=== PATIENT | female | born 1945 ===

== ENCOUNTER → 2018-07-02 06:26 | Day surgery (SDC) | payer MEDICARE, BC ==
--- NOTE | 2018-06-29 09:55 | HP ---
Amended report to enter cosigning physician. PREOPERATIVE HISTORY AND PHYSICAL: DATE OF ADMISSION/SURGERY: 07/02/18 DATE OF OFFICE VISIT/ENCOUNTER: 06/28/18 ATTENDING SURGEON: Rachna Alvarado MD* (dictated by BRIDGETTE Flower). PROCEDURE: Left wrist carpal tunnel release. HISTORY OF PRESENT ILLNESS: This is a 73-year-old female, who complains of bilateral numbness and tingling in her hands without pain, the left is worse than the right. She has had trouble for over 10 years. She does not recall a specific injury, but the symptoms have gotten more progressive over time. She had a nerve conduction study done recently, but we do not have the report available. The patient says that it showed significant carpal tunnel syndrome. She has tried conservative treatment with braces, but symptoms persist. At this point, her left hand numbness and tingling is constant. She feels weakness and she has noticed loss of muscle mass in both hands. She denies any significant neck pain. She reports that her little fingers never get numb. She is interested in pursuing surgical intervention for her left wrist carpal tunnel syndrome at this time. PAST MEDICAL HISTORY: Hypertension. PAST SURGICAL HISTORY: 1. Hysterectomy. 2. Left total knee arthroplasty. 3. Right hand surgery as a child. 4. Hemorrhoidectomy. MEDICATIONS: 1. Cosopt 1 drop both eyes twice a day. 2. Xalatan 1 drop both eyes once daily. 3. Zestril 10 mg daily. ALLERGIES: No known drug allergies. FAMILY MEDICAL HISTORY: Diabetes, heart disease, hypertension, stroke. SOCIAL HISTORY: The patient is a retired teacher. She denies tobacco use and recreational drug use. She drinks alcohol on rare occasion. REVIEW OF SYSTEMS: Negative for general, cephalic, cardiovascular, respiratory , GI, , other musculoskeletal, integumentary, endocrine, neurologic, and hematologic symptoms. Infectious Disease: Negative for MRSA, hepatitis C, HIV. PHYSICAL EXAMINATION GENERAL: A well-developed, well-nourished 73-year-old female, in no acute distress. VITAL SIGNS: Height 5 feet 2 inches, weight 176 pounds. Pulse rate 70, blood pressure 146/90. HEENT: Normocephalic, atraumatic. Pupils are equal, round, and reactive to light and accommodation. Extraocular movements are intact. Throat is clear. NECK: Supple. No palpable lymph nodes. PULMONARY: Lungs are clear to auscultation bilaterally. No wheezes, rales, or rhonchi. CARDIOVASCULAR: Regular rate and rhythm. S1, S2. No murmurs, rubs, or gallops. No edema. ABDOMEN: Positive bowel sounds. Soft, nontender. NEUROLOGICAL: Alert and oriented x3. Cranial nerves II through XII are intact. Sensation is intact to light touch. MUSCULOSKELETAL: On exam of her bilateral hands, she has thenar wasting on both sides. She also has weakness with thumb abduction bilaterally. On the left hand, she has decreased sensation in the median nerve distribution. Positive Tinel's sign at the median nerves bilaterally. She has good flexion and extension in her wrists and can make a full fist on both sides. IMPRESSION: Bilateral carpal tunnel syndrome, left worse than right. PLAN: The patient is scheduled to undergo a left wrist carpal tunnel release with Dr. Alvarado on 07/02/18. She will return to the office 10 days postop for followup and suture removal. She is planning on using [id number] ibuprofen and/or Tylenol for postoperative pain management. BRIDGETTE FLOWER [id number]/[facility] #: [id number] MTDShelbie
[~2018-07-02 06:26] MED LIST: Acetaminophen TAB* 325 MG PO PRN; Buffered Lidocaine 1% SYRIN* 1 ML/SYRINGE INTRADERM ONE; Lactated Ringers 1000 ML Bag* 1,000 ML IV SCH; Lidocaine 1% INJ* 10 MG/ML 30 ML SDV ONE; Midazolam* 1 MG/ML 2 ML VIAL (2 MG) ONE; Naloxone* 0.4 MG/ML 1 ML VIAL IV PRN; Ondansetron INJ* 2 MG/ML VIAL IV PRN; Propofol* 10 MG/ML 20 ML BTL ONE; fentaNYL* 50 MCG/ML 2 ML VIAL (100 MCG VIAL) IV PRN; fentaNYL* 50 MCG/ML 2 ML VIAL (100 MCG VIAL) ONE; oxyCODONE/Acetamin 5/325 MG* TAB PO PRN
[2018-07-02 08:58] VITALS: BP 100/66
--- NOTE | 2018-07-02 11:31 | OP ---
CC: Dr. Alvarado* OPERATIVE REPORT: DATE OF OPERATION: 07/02/18 - SDS DATE OF : 47 SURGEON: Rachna Alvarado MD SUPERVISOR [employer]: BRIDGETTE Flower ANESTHESIOLOGIST: Stanley Mayfield MD ANESTHESIA: Local MAC. PRE-OP DIAGNOSIS: Left carpal tunnel syndrome. POST-OP DIAGNOSIS: Left carpal tunnel syndrome. OPERATIVE PROCEDURE: Left carpal tunnel release. INDICATIONS: Kim is a 73-year-old female with numbness and tingling in the median nerve distribution of her left hand. She presents for left carpal tunnel release. ESTIMATED BLOOD LOSS: Zero. TOURNIQUET TIME: Approximately 10 minutes. DESCRIPTION OF PROCEDURE: The patient was brought to the operating room, was given a sedation anesthetic, and a local infiltration of 10 cc of 1% plain lidocaine in the palm of her left hand. Skin of her left hand and forearm was prepped and draped in the usual sterile fashion. The hand and forearm were exsanguinated and the tourniquet elevated to 250 mmHg. A longitudinal incision was made in the palm in line with the ring finger. We dissected through the subcutaneous tissue down to the transverse carpal ligament. The ligament was divided sharply with a knife and then more proximally with the scissors. The nerve was dissected free from the surrounding tissue and there was an area of moderate compression at the mid portion of the ligament. The wound was irrigated and the skin edges reapproximated with 4- 0 nylon suture. The wound was dressed with Xeroform, 4x4, Webril, and an Ras wrap. The patient tolerated the procedure well, was brought to the recovery room in good condition. [id number]/[facility] #: [id number] MTDD
== END | disposition home or self-care (01) ==
LOC: OR 06:26
PROVIDERS: ATTEND Orthopaedic Surgery
DX: G56.02 Carpal tunnel syndrome, left upper limb (principal); I10 Essential (primary) hypertension
CPT/HCPCS: J2250; J2704; J3010

== ENCOUNTER 2018-07-16 06:20 | Day surgery (SDC) | payer MEDICARE, BC ==
[~2018-07-16 06:20] MED LIST changes: -Acetaminophen TAB* 325 MG PO PRN; -Lidocaine 1% INJ* 10 MG/ML 30 ML SDV ONE; -Midazolam* 1 MG/ML 2 ML VIAL (2 MG) ONE; -Naloxone* 0.4 MG/ML 1 ML VIAL IV PRN; -Ondansetron INJ* 2 MG/ML VIAL IV PRN; -Propofol* 10 MG/ML 20 ML BTL ONE; -fentaNYL* 50 MCG/ML 2 ML VIAL (100 MCG VIAL) IV PRN; -fentaNYL* 50 MCG/ML 2 ML VIAL (100 MCG VIAL) ONE; -oxyCODONE/Acetamin 5/325 MG* TAB PO PRN
[2018-07-16] MEDS ORDERED: Lidocaine 1% INJ* 10 MG/ML 30 ML SDV ONE (07:05)
[2018-07-16] MEDS ORDERED: Midazolam* 1 MG/ML 2 ML VIAL (2 MG) ONE (07:25)
[2018-07-16] MEDS ORDERED: Lidocaine 2% PF * 5 ML VIAL ONE (07:30)
[2018-07-16] MEDS ORDERED: Propofol* 10 MG/ML 20 ML BTL ONE (07:30)
[2018-07-16] MEDS ORDERED: Naloxone* 0.4 MG/ML 1 ML VIAL IV PRN (07:54)
[2018-07-16 08:32] VITALS: BP 116/67
--- NOTE | 2018-07-16 12:47 | OP ---
CC: Dr. Alvarado* OPERATIVE NOTE: DATE OF OPERATION: 07/16/18 - NAM DATE OF : 47 SURGEON: Rachna Alvarado MD LEAD CASTER HELPER: BRIDGETTE Flower ANESTHESIOLOGIST: Baldemar Jules DO ANESTHESIA: Local MAC. PRE-OP DIAGNOSIS: Right carpal tunnel syndrome. POST-OP DIAGNOSIS: Right carpal tunnel syndrome. OPERATIVE PROCEDURE: Right carpal tunnel release. ESTIMATED BLOOD LOSS: Zero. TOURNIQUET TIME: Approximately 10 minutes. INDICATION FOR PROCEDURE: Kim is a 73-year-old female who has numbness and tingling in her bilateral median nerve distribution. She had a left carpal tunnel release with excellent relief 2 weeks ago, presents with the same on the right now. DESCRIPTION OF PROCEDURE: The patient was brought to the operating room, we given a sedation anesthetic and a local infiltration of 10 cc of 1% plain lidocaine in the palm of her right hand. Skin of right hand and forearm was prepped and draped in the usual sterile fashion. The hand and forearm were exsanguinated and the tourniquet elevated to 250 mmHg. A longitudinal incision was made in the palm in line with the ring finger. We dissected through the subcutaneous tissue down to the transverse carpal ligament. The ligament was divided sharply with a knife and then more proximally with the scissors. The nerve was dissected free from the surrounding tissue and there was an area of moderate compression at the mid portion of the ligament. The wound was irrigated and the skin edges were reapproximated with 4-0 nylon suture. The wound was dressed with Xeroform, 4x4, Webril, and an Ras wrap. The patient tolerated the procedure well and was brought to the recovery room in good condition. [id number]/[facility] #: [id number] [facility]
== END 2018-07-16 08:26 | disposition home or self-care (01) ==
LOC: OREAST 06:20
PROVIDERS: ATTEND Orthopaedic Surgery
DX: G56.01 Carpal tunnel syndrome, right upper limb (principal); I10 Essential (primary) hypertension
CPT/HCPCS: J2250; J2704